=== PATIENT | female | born 1990 | race Hispanic/Latino ===

== ENCOUNTER 2017-03-31 21:51 | Emergency (ER) | payer MEDICAID ==
[2017-03-31 22:45] LABS: BASOPHILS % (AUTO) 0.8 % (0.0-5.0); EOSINOPHILS % (AUTO) 1.3 % (0.0-8.0); HEMATOCRIT 37.4 % (36-48); LYMPHOCYTES % (AUTO) 26.5 % (21.0-51.0); MEAN CORPUSCULAR HEMOGLOBIN 30.8 pg (27.0-33.0); MEAN CORPUSCULAR HGB CONC 34.1 g/dL (32.0-36.0); MEAN CORPUSCULAR VOLUME 90.3 fL (79-99); MONOCYTES % (AUTO) 6.3 % (3.0-13.0); NEUTROPHILS % (AUTO) 65.1 % (40.0-77.0); PLATELET COUNT (AUTO) 261 K/uL (130-400); RED BLOOD CELL COUNT(AUTO) 4.15 MIL/uL (4.00-5.50); WHITE BLOOD COUNT (AUTO) 6.2 K/uL (4.8-10.8)
[2017-03-31 22:54] LABS: CREATININE 0.6 mg/dL (0.5-1.5); POTASSIUM 3.8 mmol/L (3.5-5.1)
[2017-03-31 23:12] LABS: INR 1.72 (0.85-1.15); PARTIAL THROMBOPLASTIN TIME 32.7 SEC (26.3-35.5); PROTHROMBIN TIME 17.9 SEC (9.6-11.6)
[2017-03-31] MEDS ORDERED: ACETAMINOPHEN EXTRA STRENGTH 500 MG TABLET ONE (23:52)
== END 2017-04-01 00:07 | disposition home or self-care (01) ==
LOC: EDH 21:51
DX: R07.89 Other chest pain (principal); Z88.6 Allergy status to analgesic agent; Z88.8 Allergy status to other drugs, medicaments and biological substances; Z98.890 Other specified postprocedural states; Z79.899 Other long term (current) drug therapy
CPT/HCPCS: 36415; 71045; 80048; 84484; 84703; 85025; 85610; 85730; 93005

== ENCOUNTER 2017-05-23 01:44 | Emergency (ER) | payer MEDICAID ==
[2017-05-23 03:05] LABS: INR 1.62 (0.85-1.15); PARTIAL THROMBOPLASTIN TIME 33.1 SEC (26.3-35.5); PROTHROMBIN TIME 16.8 SEC (9.6-11.6)
[2017-05-23 03:09] LABS: BILIRUBIN,URINE Negative (NEGATIVE); COLOR,URINE Yellow (YELLOW); GLUCOSE, URINE (UA) Negative (NEGATIVE); KETONES,URINE Negative (NEGATIVE); LEUKOCYTE ESTERASE ,URINE Small (NEGATIVE); NITRATE,URINE Negative (NEGATIVE); OCCULT BLOOD,URINE Negative (NEGATIVE); PROTEIN,URINE Negative (NEGATIVE)
[2017-05-23 03:09] LABS: ALBUMIN 3.7 g/dL (3.5-5.0); BILIRUBIN,TOTAL 0.4 mg/dL (0.2-1.0); CREATININE 0.7 mg/dL (0.5-1.5); POTASSIUM 3.6 mmol/L (3.5-5.1)
[2017-05-23 03:12] LABS: APPEARANCE,URINE SLIGHTLY CLOUDY (CLEAR)
[2017-05-23 03:13] LABS: BASOPHILS % (AUTO) 0.9 % (0.0-5.0); EOSINOPHILS % (AUTO) 1.3 % (0.0-8.0); HEMATOCRIT 39.1 % (36-48); LYMPHOCYTES % (AUTO) 32.6 % (21.0-51.0); MEAN CORPUSCULAR HEMOGLOBIN 31.3 pg (27.0-33.0); MEAN CORPUSCULAR VOLUME 89.6 fL (79-99); MONOCYTES % (AUTO) 7.7 % (3.0-13.0); NEUTROPHILS % (AUTO) 57.5 % (40.0-77.0); PLATELET COUNT (AUTO) 250 K/uL (130-400); RED BLOOD CELL COUNT(AUTO) 4.36 MIL/uL (4.00-5.50); RED CELL DISTRIBUTION WIDTH 13.1 % (11.0-15.5); WHITE BLOOD COUNT (AUTO) 7.7 K/uL (4.8-10.8)
[2017-05-23 03:38] LABS: HCG,QUAL RESULT NEGATIVE (NEGATIVE)
[2017-05-23 05:13] LABS: MUCUS,URINE Few LPF (None Seen); RBC,URINE None Seen /HPF (0-1); SQUAMOUS EPITHELIAL CELL,UR 30-50 /LPF (0-2)
[2017-05-23 05:14] LABS: BACTERIA,URINE Few /HPF (None Seen); WBC,URINE 0-1 /HPF (0-1)
== END 2017-05-23 04:43 | disposition home or self-care (01) ==
LOC: EDH 01:44
DX: K02.9 Dental caries, unspecified (principal); H92.02 Otalgia, left ear; R79.1 Abnormal coagulation profile; Z88.6 Allergy status to analgesic agent; Z79.899 Other long term (current) drug therapy; Z98.890 Other specified postprocedural states
CPT/HCPCS: 36415; 80053; 81001; 81025; 85025; 85610; 85730

== ENCOUNTER 2018-03-01 15:32 | Emergency (ER) | payer MEDICAID, OTHER | END 2018-03-01 15:55 | disposition home or self-care (01) | LOC: EDH 15:32 | DX: K08.89 Other specified disorders of teeth and supporting structures (principal) | CPT/HCPCS: 99281 ==

== ENCOUNTER 2018-09-17 21:33 | Emergency (ER) | payer OTHER ==
[2018-09-17] MEDS ORDERED: LIDOCAINE HCL-MPF 1% 2ML VIAL ONE ×2 (22:44→22:46)
[2018-09-17] MEDS ORDERED: CEFTRIAXONE SODIUM 1 GM ONE (22:44)
== END 2018-09-17 23:28 | disposition home or self-care (01) ==
LOC: EDH 21:33
DX: L02.416 Cutaneous abscess of left lower limb (principal); Z86.718 Personal history of other venous thrombosis and embolism; Z88.5 Allergy status to narcotic agent; Z88.8 Allergy status to other drugs, medicaments and biological substances; Z98.890 Other specified postprocedural states
CPT/HCPCS: 96372; 99283; J0696; J3490 ×2

== ENCOUNTER 2018-12-26 06:13 | Emergency (ER) | payer OTHER | END 2018-12-26 06:46 | disposition home or self-care (01) | LOC: EDH 06:13 | DX: R51 Headache (principal); Z98.890 Other specified postprocedural states | CPT/HCPCS: 99281 ==

== ENCOUNTER 2019-09-11 16:02 | Emergency (ER) | payer MEDICAID | END 2019-09-11 18:05 | disposition home or self-care (01) | LOC: EDH 16:02 | DX: R06.00 Dyspnea, unspecified (principal); R07.89 Other chest pain; Z79.01 Long term (current) use of anticoagulants; Z88.8 Allergy status to other drugs, medicaments and biological substances; Z88.6 Allergy status to analgesic agent ==

== ENCOUNTER 2019-11-15 21:44 | Emergency (ER) | payer MEDICAID ==
[~2019-11-15 21:44] MED LIST: APIX5TAB PO; CALC500T13 PO; CYAN-35 PO; FOLI0.8C PO
[2019-11-15] MEDS ORDERED: ONDANSETRON HCL 4 MG/2 ML VIAL ONE (22:29)
[2019-11-15] MEDS ORDERED: DiphenhydrAMINE HCL 50 MG/ML VIAL ONE (22:36)
[2019-11-15] MEDS ORDERED: METOCLOPRAMIDE 10 MG/2 ML VIAL ONE (22:36)
[2019-11-15] MEDS ORDERED: PROCHLORPERAZINE EDISYLATE 10 MG/2 ML VIAL ONE (23:25)
[2019-11-15] MEDS ORDERED: SODIUM CHLORIDE 0.9% 1000ML 1,000 ML IV ONE (23:25)
[2019-11-16] MEDS ORDERED: ACETAMINOPHEN EXTRA STRENGTH 500 MG TABLET ONE (00:03)
== END 2019-11-16 00:51 | disposition home or self-care (01) ==
LOC: EDH 21:44
DX: G43.019 Migraine without aura, intractable, without status migrainosus (principal); R11.2 Nausea with vomiting, unspecified; Z79.01 Long term (current) use of anticoagulants; Z86.718 Personal history of other venous thrombosis and embolism
CPT/HCPCS: 70450; 81025; 96361; 96374; 96375; 99284; J0780; J1200; J2405; J2765; J7030

== ENCOUNTER 2020-09-10 10:27 | Emergency (ER) | payer MEDICAID ==
[~2020-09-10] VITALS: Ht 160 cm; Wt 90.7 kg
[2020-09-10 10:29] VITALS: BP 103/45
[2020-09-10] MEDS ORDERED: ASPIRIN 325 MG TABLET PO SCH (10:45)
[2020-09-10 10:58] LABS: BASOPHILS % (AUTO) 0.5 % (0.0-5.0); EOSINOPHILS % (AUTO) 0.4 % (0.0-8.0); HEMATOCRIT 42.8 % (36-48); LYMPHOCYTES % (AUTO) 10.3 % (21.0-51.0); MEAN CORPUSCULAR HEMOGLOBIN 32.3 pg (27.0-33.0); MEAN CORPUSCULAR HGB CONC 32.9 g/dL (32.0-36.0); MEAN CORPUSCULAR VOLUME 98.2 fL (79-99); MONOCYTES % (AUTO) 3.4 % (3.0-13.0); NEUTROPHILS % (AUTO) 85.2 % (40.0-77.0); PLATELET COUNT (AUTO) 260 K/uL (130-400); RED BLOOD CELL COUNT(AUTO) 4.36 MIL/uL (4.00-5.50); RED CELL DISTRIBUTION WIDTH 12.4 % (11.0-15.5); WHITE BLOOD COUNT (AUTO) 5.5 K/uL (4.8-10.8)
[2020-09-10 11:24] LABS: ALANINE AMINOTRANSFERASE 23 U/L (12-78); ASPARTATE AMINOTRANSFERASE 20 U/L (10-37); BILIRUBIN,TOTAL 0.4 mg/dL (0.2-1.0); CARBON DIOXIDE 28 mmol/L (21-32); CHLORIDE 104 mmol/L (101-111); CREATINE KINASE, TOTAL 78 U/L (21-232); CREATININE 0.8 mg/dL (0.5-1.5); GLOMERULAR FILTR. RATE CALC 90 mL/min (>60); GLUCOSE,RANDOM 97 mg/dL (70-105); MYOGLOBIN 22 ng/mL (10-92); POTASSIUM 4.1 mmol/L (3.5-5.1); SODIUM SERUM 136 mmol/L (136-145); TOTAL PROTEIN, SERUM 8.4 g/dL (6.0-8.3); TROPONIN I < 0.04 ng/mL (0.00-0.06); UREA NITROGEN, BLOOD 16 mg/dL (7-18)
[2020-09-10 11:28] LABS: AMPHET/METH SCREEN,URINE NEGATIVE (NEGATIVE); BARBITURATE SCREEN, URINE NEGATIVE (NEGATIVE); BENZODIAZEPINES SCREEN,URINE NEGATIVE (NEGATIVE); CANNABINOID SCREEN,URINE NEGATIVE (NEGATIVE); COCAINE SCREEN,URINE NEGATIVE (NEGATIVE); OPIATE SCREEN,URINE NEGATIVE (NEGATIVE); PHENCYCLIDINE SCREEN,URINE NEGATIVE (NEGATIVE)
[2020-09-10 11:31] LABS: HCG,QUAL RESULT NEGATIVE (NEGATIVE)
[2020-09-10 11:46] VITALS: BP 110/54
[2020-09-10 12:57] LABS: INR 0.98 (0.85-1.15); PROTHROMBIN TIME 10.7 SEC (9.6-11.6)
[2020-09-10] MEDS ORDERED: APIXABAN 5 MG TABLET PO STA (13:57)
[2020-09-10 14:08] VITALS: BP 118/62
[2020-09-10] MEDS ORDERED: APIX5TAB PO (15:25)
== END 2020-09-10 15:27 | disposition home or self-care (01) ==
LOC: EDH 10:27
DX: I82.412 Acute embolism and thrombosis of left femoral vein (principal); R07.89 Other chest pain; Z79.899 Other long term (current) drug therapy; Z98.890 Other specified postprocedural states
CPT/HCPCS: 36415; 71045; 80053; 80305; 81025; 82550; 83874; 84484; 85025; 85378; 85610; 93005; 93971

== ENCOUNTER 2021-03-22 20:48 | Emergency (ER) | payer MEDICAID ==
[~2021-03-22] VITALS: Ht 157.5 cm; Wt 93.0 kg
[2021-03-22 22:24] VITALS: BP 110/77
[2021-03-22] MEDS ORDERED: CYCLOBENZAPRINE HCL 10 MG TABLET PO ONE (22:30)
[2021-03-22] MEDS ORDERED: ACETAMINOPHEN 500 MG TABLET PO ONE (22:30)
[2021-03-22] MEDS ORDERED: PROMETHAZINE HCL 25 MG/ML 1ML AMPULE IM ONE (22:30)
[2021-03-22 22:41] LABS: BASOPHILS % (AUTO) 0.6 % (0.0-5.0); EOSINOPHILS % (AUTO) 1.2 % (0.0-8.0); HEMATOCRIT 39.3 % (36-48); LYMPHOCYTES % (AUTO) 24.2 % (21.0-51.0); MEAN CORPUSCULAR HEMOGLOBIN 31.6 pg (27.0-33.0); MEAN CORPUSCULAR HGB CONC 33.3 g/dL (32.0-36.0); MEAN CORPUSCULAR VOLUME 94.9 fL (79-99); MONOCYTES % (AUTO) 7.6 % (3.0-13.0); NEUTROPHILS % (AUTO) 66.2 % (40.0-77.0); PLATELET COUNT (AUTO) 272 K/uL (130-400); RED BLOOD CELL COUNT(AUTO) 4.14 MIL/uL (4.00-5.50); RED CELL DISTRIBUTION WIDTH 12.6 % (11.0-15.5); WHITE BLOOD COUNT (AUTO) 6.5 K/uL (4.8-10.8)
[2021-03-22] MEDS ORDERED: 0.9%NACL 50ML 50 ML IV ONE (22:53)
[2021-03-22] MEDS ORDERED: RIZA10TA23 PO (23:01)
[2021-03-22] MEDS ORDERED: PHEN12S PR (23:01)
[2021-03-22 23:16] LABS: CREATININE 0.6 mg/dL (0.5-1.5); POTASSIUM 3.5 mmol/L (3.5-5.1)
[2021-03-22 23:21] LABS: ALBUMIN 3.7 g/dL (3.5-5.0); BILIRUBIN,TOTAL 0.4 mg/dL (0.2-1.0); TOTAL PROTEIN, SERUM 7.8 g/dL (6.0-8.3)
== END 2021-03-22 23:27 | disposition home or self-care (01) ==
LOC: EDH 20:48
DX: G43.109 Migraine with aura, not intractable, without status migrainosus (principal); Z79.899 Other long term (current) drug therapy
CPT/HCPCS: 36415; 80053; 85025; 96372; 99283; J2550

== ENCOUNTER 2021-09-08 02:50 | Emergency (ER) | payer BC, MEDICAID ==
[~2021-09-08] VITALS: Ht 160 cm; Wt 104.8 kg
[~2021-09-08 02:50] MED LIST changes: -APIX5TAB PO; -CALC500T13 PO; -CYAN-35 PO; +CYAN100099 PO; +DABI150C PO
[2021-09-08 03:20] LABS: BASOPHILS % (AUTO) 0.7 % (0.0-5.0); EOSINOPHILS % (AUTO) 1.9 % (0.0-8.0); HEMATOCRIT 40.4 % (36-48); LYMPHOCYTES % (AUTO) 24.3 % (21.0-51.0); MEAN CORPUSCULAR HEMOGLOBIN 31.2 pg (27.0-33.0); MEAN CORPUSCULAR HGB CONC 33.9 g/dL (32.0-36.0); MONOCYTES % (AUTO) 9.7 % (3.0-13.0); PLATELET COUNT (AUTO) 253 K/uL (130-400); RED BLOOD CELL COUNT(AUTO) 4.39 MIL/uL (4.00-5.50); RED CELL DISTRIBUTION WIDTH 12.6 % (11.0-15.5); WHITE BLOOD COUNT (AUTO) 8.4 K/uL (4.8-10.8)
[2021-09-08 03:22] LABS: APPEARANCE,URINE CLEAR (CLEAR); BILIRUBIN,URINE NEGATIVE (NEGATIVE); COLOR,URINE YELLOW (YELLOW); GLUCOSE, URINE (UA) NEGATIVE (NEGATIVE); KETONES,URINE NEGATIVE (NEGATIVE); LEUKOCYTE ESTERASE ,URINE SMALL (NEGATIVE); NITRATE,URINE NEGATIVE (NEGATIVE); OCCULT BLOOD,URINE MODERATE (NEGATIVE); PROTEIN,URINE TRACE mg/dL (NEGATIVE); UROBILINOGEN,URINE 0.2 mg/dL (0.2-1.0)
[2021-09-08 03:30] LABS: CREATININE 0.7 mg/dL (0.5-1.5); POTASSIUM 3.8 mmol/L (3.5-5.1)
[2021-09-08 03:34] LABS: ALBUMIN 3.4 g/dL (3.5-5.0); TOTAL PROTEIN, SERUM 7.7 g/dL (6.0-8.3)
[2021-09-08 03:46] LABS: BACTERIA,URINE Few /HPF (None Seen)
[2021-09-08 03:53] LABS: HCG,QUAL RESULT NEGATIVE (NEGATIVE)
[2021-09-08] MEDS ORDERED: KETOROLAC 15MG/ML VIAL (15MG/ML) IV ONE (04:00)
[2021-09-08 05:35] VITALS: BP 113/68
[2021-09-08] MEDS ORDERED: TRAM100T40 PO (06:00)
[2021-09-08] MEDS ORDERED: MEDR10TA PO (06:00)
[2021-09-08] MEDS ORDERED: MEDROXYPROGESTERONE ACET 5 MG TAB PO SCH (06:00)
== END 2021-09-08 06:11 | disposition home or self-care (01) ==
LOC: EDH 02:50
DX: N93.9 Abnormal uterine and vaginal bleeding, unspecified (principal); G43.909 Migraine, unspecified, not intractable, without status migrainosus; Z86.718 Personal history of other venous thrombosis and embolism; Z88.5 Allergy status to narcotic agent; Z88.8 Allergy status to other drugs, medicaments and biological substances; Z79.899 Other long term (current) drug therapy
CPT/HCPCS: 99284; 96374; 76856; 80053; 83690; 85025; 87088; 81001; 81025; 36415; J1885

== ENCOUNTER 2021-09-27 09:18 | Emergency (ER) | payer BC, MEDICAID ==
[~2021-09-27] VITALS: Ht 165.1 cm; Wt 99.8 kg
[~2021-09-27 09:18] MED LIST changes: +MEDR10TA PO; +TRAM100T40 PO
[2021-09-27 09:52] LABS: EOSINOPHILS % (AUTO) 1.3 % (0.0-8.0); HEMATOCRIT 32.5 % (36-48); LYMPHOCYTES % (AUTO) 29.2 % (21.0-51.0); MEAN CORPUSCULAR HEMOGLOBIN 30.9 pg (27.0-33.0); MEAN CORPUSCULAR HGB CONC 33.2 g/dL (32.0-36.0); MEAN CORPUSCULAR VOLUME 92.9 fL (79-99); MONOCYTES % (AUTO) 7.7 % (3.0-13.0); NEUTROPHILS % (AUTO) 60.4 % (40.0-77.0); PLATELET COUNT (AUTO) 254 K/uL (130-400); RED CELL DISTRIBUTION WIDTH 13.2 % (11.0-15.5); WHITE BLOOD COUNT (AUTO) 5.2 K/uL (4.8-10.8)
[2021-09-27 10:40] LABS: CARBON DIOXIDE 25 mmol/L (21-32); CHLORIDE 107 mmol/L (101-111); CREATININE 0.6 mg/dL (0.5-1.5); GLOMERULAR FILTR. RATE CALC 124 mL/min (>60); GLUCOSE,RANDOM 93 mg/dL (70-105); POTASSIUM 4.1 mmol/L (3.5-5.1); SODIUM SERUM 139 mmol/L (136-145); UREA NITROGEN, BLOOD 16 mg/dL (7-18)
[2021-09-27 10:44] LABS: ALANINE AMINOTRANSFERASE 19 U/L (12-78); ALBUMIN 3.3 g/dL (3.5-5.0); ASPARTATE AMINOTRANSFERASE 19 U/L (10-37)
[2021-09-27] MEDS ORDERED: IOHEXOL 350 MG/ML 100ML INFUS..BTL IV ONE (11:15)
[2021-09-27 12:47] VITALS: BP 109/61
== END 2021-09-27 12:49 | disposition home or self-care (01) ==
LOC: EDH 09:18
DX: I82.402 Acute embolism and thrombosis of unspecified deep veins of left lower extremity (principal); E66.9 Obesity, unspecified; Z79.01 Long term (current) use of anticoagulants; Z88.5 Allergy status to narcotic agent; Z68.36 Body mass index [BMI] 36.0-36.9, adult
CPT/HCPCS: 99284; 71270; 80053; 85025; 85378; 81025; 36415; Q9967

== ENCOUNTER 2021-10-23 22:01 | Emergency (ER) | payer BC, MEDICAID ==
[~2021-10-23] VITALS: Ht 160 cm; Wt 102.5 kg
[2021-10-23 22:03] VITALS: BP 119/80
[2021-10-23] MEDS ORDERED: KETOROLAC 30MG VIAL (30MG/ML) ONE (22:51)
[2021-10-23] MEDS ORDERED: CYCLOBENZAPRINE HCL 10 MG TABLET ONE (22:52)
[2021-10-23 23:00] LABS: BASOPHILS % (AUTO) 0.4 % (0.0-5.0); EOSINOPHILS % (AUTO) 0.5 % (0.0-8.0); HEMATOCRIT 39.3 % (36-48); LYMPHOCYTES % (AUTO) 15.6 % (21.0-51.0); MEAN CORPUSCULAR HEMOGLOBIN 31.9 pg (27.0-33.0); MEAN CORPUSCULAR HGB CONC 33.6 g/dL (32.0-36.0); MEAN CORPUSCULAR VOLUME 94.9 fL (79-99); MONOCYTES % (AUTO) 5.1 % (3.0-13.0); NEUTROPHILS % (AUTO) 78.3 % (40.0-77.0); PLATELET COUNT (AUTO) 255 K/uL (130-400); RED BLOOD CELL COUNT(AUTO) 4.14 MIL/uL (4.00-5.50); WHITE BLOOD COUNT (AUTO) 7.9 K/uL (4.8-10.8)
[2021-10-23] MEDS ORDERED: 0.9% NACL 500ML IV.SOLN 500 ML IV SCH (23:00)
[2021-10-23] MEDS ORDERED: CYCLOBENZAPRINE HCL 10 MG TABLET PO ONE (23:00)
[2021-10-23] MEDS ORDERED: KETOROLAC 30MG VIAL (30MG/ML) IVP ONE (23:00)
[2021-10-23] MEDS ORDERED: PROMETHAZINE HCL 25 MG/ML 1ML AMPULE IVPB SCH (23:00)
[2021-10-23 23:08] LABS: CREATININE 0.6 mg/dL (0.5-1.5); POTASSIUM 3.7 mmol/L (3.5-5.1)
[2021-10-23 23:13] LABS: ALBUMIN 3.6 g/dL (3.5-5.0); TOTAL PROTEIN, SERUM 7.5 g/dL (6.0-8.3)
[2021-10-23] MEDS ORDERED: NAPR-1180 PO (23:14)
[2021-10-23] MEDS ORDERED: CYCL10TA16 PO (23:14)
[2021-10-23] MEDS ORDERED: RIZA10TA23 PO (23:14)
== END 2021-10-24 | disposition home or self-care (01) ==
LOC: EDH 22:01
DX: G43.109 Migraine with aura, not intractable, without status migrainosus (principal); Z79.01 Long term (current) use of anticoagulants; Z79.1 Long term (current) use of non-steroidal anti-inflammatories (NSAID); Z86.718 Personal history of other venous thrombosis and embolism; Z88.5 Allergy status to narcotic agent; E66.9 Obesity, unspecified; Z68.41 Body mass index [BMI] 40.0-44.9, adult
CPT/HCPCS: 99284; 96365; 96375; 80053; 85025; 36415; J7040; J2550; J1885

== ENCOUNTER 2021-11-03 12:43 | Emergency (ER) | payer BC, MEDICAID ==
[~2021-11-03] VITALS: Ht 160 cm; Wt 104.3 kg
[~2021-11-03 12:43] MED LIST changes: +CYCL10TA16 PO; +NAPR-1180 PO; +RIZA10TA23 PO
[2021-11-03 12:47] VITALS: BP 121/70
[2021-11-03] MEDS ORDERED: OSEL75 PO (14:24)
[2021-11-03] MEDS ORDERED: OSELTAMIVIR PHOSPHATE 75 MG CAP PO SCH (14:30)
== END 2021-11-03 14:38 | disposition home or self-care (01) ==
LOC: EDH 12:43
DX: J10.1 Influenza due to other identified influenza virus with other respiratory manifestations (principal); Z20.822 Contact with and (suspected) exposure to COVID-19; G43.909 Migraine, unspecified, not intractable, without status migrainosus; E66.9 Obesity, unspecified; Z68.41 Body mass index [BMI] 40.0-44.9, adult; Z88.5 Allergy status to narcotic agent; Z79.899 Other long term (current) drug therapy; Z86.718 Personal history of other venous thrombosis and embolism; Z98.890 Other specified postprocedural states
CPT/HCPCS: 99283; 87635; 87804 ×2; C9803

== ENCOUNTER 2021-12-02 14:16 | Emergency (ER) | payer BC, MEDICAID ==
[~2021-12-02] VITALS: Ht 160 cm; Wt 104.3 kg
[~2021-12-02 14:16] MED LIST changes: +OSEL75 PO
[2021-12-02 14:47] LABS: BASOPHILS % (AUTO) 0.6 % (0.0-5.0); LYMPHOCYTES % (AUTO) 22.1 % (21.0-51.0); MEAN CORPUSCULAR HEMOGLOBIN 31.6 pg (27.0-33.0); MEAN CORPUSCULAR HGB CONC 33.9 g/dL (32.0-36.0); MEAN CORPUSCULAR VOLUME 93.1 fL (79-99); PLATELET COUNT (AUTO) 225 K/uL (130-400); RED BLOOD CELL COUNT(AUTO) 4.08 MIL/uL (4.00-5.50); RED CELL DISTRIBUTION WIDTH 12.1 % (11.0-15.5); WHITE BLOOD COUNT (AUTO) 6.9 K/uL (4.8-10.8)
[2021-12-02 14:49] VITALS: BP 127/75
[2021-12-02 14:57] LABS: CREATININE 0.6 mg/dL (0.5-1.5); POTASSIUM 3.5 mmol/L (3.5-5.1)
[2021-12-02 15:04] LABS: ALBUMIN 3.6 g/dL (3.5-5.0); TOTAL PROTEIN, SERUM 7.5 g/dL (6.0-8.3)
[2021-12-02 15:25] LABS: APPEARANCE,URINE CLEAR (CLEAR); BILIRUBIN,URINE NEGATIVE (NEGATIVE); COLOR,URINE YELLOW (YELLOW); GLUCOSE, URINE (UA) NEGATIVE (NEGATIVE); KETONES,URINE 5 mg/dL (NEGATIVE); LEUKOCYTE ESTERASE ,URINE NEGATIVE Leu/uL (NEGATIVE); NITRATE,URINE NEGATIVE (NEGATIVE); OCCULT BLOOD,URINE NEGATIVE (NEGATIVE); PH,URINE 5.5 (5.0-8.0); PROTEIN,URINE NEGATIVE (NEGATIVE); UROBILINOGEN,URINE 0.2 mg/dL (0.2-1.0)
[2021-12-02 15:27] LABS: HCG,QUALITATIVE URINE NEGATIVE (NEGATIVE)
[2021-12-02] MEDS ORDERED: KETOROLAC 15MG/ML VIAL (15MG/ML) IV ONE (15:30)
[2021-12-02] MEDS ORDERED: 0.9%NACL 1000ML 1,000 ML IV ONE (15:30)
== END 2021-12-02 16:55 | disposition home or self-care (01) ==
LOC: EDH 14:16
DX: M25.572 Pain in left ankle and joints of left foot (principal); R51.9 Headache, unspecified; Z88.5 Allergy status to narcotic agent; Z88.8 Allergy status to other drugs, medicaments and biological substances; Z79.899 Other long term (current) drug therapy
CPT/HCPCS: 99284; 96374; 93971; 96361; 80053; 85025; 81003; 81025; 36415; J7030; J1885

== ENCOUNTER 2022-04-13 20:55 | Emergency (ER) | payer BC, MEDICAID ==
[~2022-04-13] VITALS: Ht 160 cm; Wt 90.7 kg
[2022-04-13 21:16] LABS: BASOPHILS % (AUTO) 0.8 % (0.0-5.0); EOSINOPHILS % (AUTO) 1.5 % (0.0-8.0); HEMATOCRIT 39.6 % (36-48); MEAN CORPUSCULAR HEMOGLOBIN 31.9 pg (27.0-33.0); MEAN CORPUSCULAR HGB CONC 34.3 g/dL (32.0-36.0); NEUTROPHILS % (AUTO) 56.4 % (40.0-77.0); PLATELET COUNT (AUTO) 289 K/uL (130-400); RED BLOOD CELL COUNT(AUTO) 4.26 MIL/uL (4.00-5.50); RED CELL DISTRIBUTION WIDTH 12.2 % (11.0-15.5)
[2022-04-13 21:26] LABS: CREATININE 0.7 mg/dL (0.5-1.5); POTASSIUM 3.2 mmol/L (3.5-5.1)
[2022-04-13 21:33] LABS: ALBUMIN 3.9 g/dL (3.5-5.0); TOTAL PROTEIN, SERUM 8.1 g/dL (6.0-8.3)
[2022-04-13] MEDS ORDERED: KCL 20 MEQ ERTAB PO ONE ×2 (23:12→23:30)
[2022-04-14 02:52] VITALS: BP 132/84
== END 2022-04-14 02:50 | disposition home or self-care (01) ==
LOC: EDH 20:55
DX: R12 Heartburn (principal); R07.89 Other chest pain; E66.9 Obesity, unspecified; G43.909 Migraine, unspecified, not intractable, without status migrainosus; Z88.5 Allergy status to narcotic agent; Z88.8 Allergy status to other drugs, medicaments and biological substances; Z86.718 Personal history of other venous thrombosis and embolism
CPT/HCPCS: 36415; 71045; 80053; 83880; 84484; 85025; 93005

== ENCOUNTER 2022-06-29 08:15 | Inpatient (IN) | payer OTHER, MEDICAID ==
[~2022-06-29] VITALS: Ht 154.9 cm; Wt 107.3 kg
[2022-06-29 09:33] LABS: EOSINOPHILS % (AUTO) 2.1 % (0.0-8.0); HEMATOCRIT 39.8 % (36-48); LYMPHOCYTES % (AUTO) 27.6 % (21.0-51.0); MEAN CORPUSCULAR HEMOGLOBIN 32.1 pg (27.0-33.0); MEAN CORPUSCULAR HGB CONC 33.7 g/dL (32.0-36.0); MEAN CORPUSCULAR VOLUME 95.2 fL (79-99); MONOCYTES % (AUTO) 7.8 % (3.0-13.0); NEUTROPHILS % (AUTO) 61.2 % (40.0-77.0); PLATELET COUNT (AUTO) 229 K/uL (130-400); RED BLOOD CELL COUNT(AUTO) 4.18 MIL/uL (4.00-5.50); RED CELL DISTRIBUTION WIDTH 12.3 % (11.0-15.5); WHITE BLOOD COUNT (AUTO) 7.2 K/uL (4.8-10.8)
[2022-06-29 09:54] LABS: CREATININE 0.7 mg/dL (0.5-1.5); POTASSIUM 3.7 mmol/L (3.5-5.1)
[2022-06-29 09:58] LABS: INR 0.94 (0.85-1.15); PROTHROMBIN TIME 10.3 SEC (9.6-11.6)
[2022-06-29 09:59] LABS: ALBUMIN 3.6 g/dL (3.5-5.0); TOTAL PROTEIN, SERUM 7.6 g/dL (6.0-8.3)
[2022-06-29 10:00] LABS: PARTIAL THROMBOPLASTIN TIME 33.8 SEC (26.3-35.5)
[2022-06-29] MEDS ORDERED: HEPARIN 5,000 UNIT VIAL ONE (10:19)
[2022-06-29] MEDS ORDERED: HEPARIN 25,000 UNITS/250ML D5W 250 ML IV ONE (10:20)
[2022-06-29] MEDS ORDERED: HEPARIN 25,000 UNITS/250ML D5W 250 ML IV SCH (11:00)
[2022-06-29] MEDS ORDERED: HEPARIN 5,000 UNIT VIAL SQ PRN ×2 (11:00→13:30)
[2022-06-29] MEDS ORDERED: MAG/ALUM/SIMETH 30 ML UDCUP PO PRN (13:00)
[2022-06-29] MEDS ORDERED: ACETAMINOPHEN 325 MG TAB PO PRN (13:00)
[2022-06-29] MEDS ORDERED: LACTULOSE 20 GM/30 ML UDCUP PO PRN (13:00)
[2022-06-29] MEDS ORDERED: ZOLPIDEM TARTRATE 5 MG TAB PO PRN (13:00)
[2022-06-29] MEDS ORDERED: DIPHENHYDRAMINE HCL 25 MG CAPSULE PO PRN (13:00)
[2022-06-29] MEDS ORDERED: ONDANSETRON 4MG INJ IV PRN (13:00)
[2022-06-29] MEDS: HEPARIN 25,000 UNITS/250ML D5W 250 ML IV SCH ×2 (13:30→19:30)
[2022-06-29 16:53] LABS: BASOPHILS % (AUTO) 0.7 % (0.0-5.0); EOSINOPHILS % (AUTO) 2.1 % (0.0-8.0); HEMATOCRIT 39.1 % (36-48); LYMPHOCYTES % (AUTO) 29.1 % (21.0-51.0); MEAN CORPUSCULAR HEMOGLOBIN 31.6 pg (27.0-33.0); MEAN CORPUSCULAR HGB CONC 33.5 g/dL (32.0-36.0); MEAN CORPUSCULAR VOLUME 94.4 fL (79-99); MONOCYTES % (AUTO) 6.3 % (3.0-13.0); NEUTROPHILS % (AUTO) 61.4 % (40.0-77.0); PLATELET COUNT (AUTO) 219 K/uL (130-400); RED BLOOD CELL COUNT(AUTO) 4.14 MIL/uL (4.00-5.50); RED CELL DISTRIBUTION WIDTH 12.5 % (11.0-15.5); WHITE BLOOD COUNT (AUTO) 8.1 K/uL (4.8-10.8)
[2022-06-29] MEDS: FAMOTIDINE 20MG TAB PO SCH (21:17)
[2022-06-29] MEDS: ACETAMINOPHEN 325 MG TAB PO PRN (21:23)
[2022-06-29 23:20] LABS: INR 0.98 (0.85-1.15); PROTHROMBIN TIME 10.7 SEC (9.6-11.6)
[2022-06-29 23:38] LABS: PARTIAL THROMBOPLASTIN TIME 112.7 SEC (26.3-35.5)
[2022-06-30] MEDS ORDERED: DABI150C PO (00:31)
[2022-06-30] MEDS: HEPARIN 25,000 UNITS/250ML D5W 250 ML IV SCH ×4 (00:58→21:01)
[2022-06-30 01:00] VITALS: BP 123/75
[2022-06-30 04:00] VITALS: BP 118/68
[2022-06-30 07:09] LABS: BASOPHILS % (AUTO) 0.8 % (0.0-5.0); EOSINOPHILS % (AUTO) 2.6 % (0.0-8.0); LYMPHOCYTES % (AUTO) 28.5 % (21.0-51.0); MEAN CORPUSCULAR HEMOGLOBIN 31.7 pg (27.0-33.0); MEAN CORPUSCULAR HGB CONC 33.5 g/dL (32.0-36.0); MEAN CORPUSCULAR VOLUME 94.6 fL (79-99); MONOCYTES % (AUTO) 8.1 % (3.0-13.0); NEUTROPHILS % (AUTO) 59.7 % (40.0-77.0); PLATELET COUNT (AUTO) 218 K/uL (130-400); RED BLOOD CELL COUNT(AUTO) 3.91 MIL/uL (4.00-5.50); RED CELL DISTRIBUTION WIDTH 12.6 % (11.0-15.5); WHITE BLOOD COUNT (AUTO) 6.6 K/uL (4.8-10.8)
[2022-06-30 07:22] LABS: INR 0.95 (0.85-1.15); PROTHROMBIN TIME 10.4 SEC (9.6-11.6)
[2022-06-30 07:23] LABS: PARTIAL THROMBOPLASTIN TIME 69.9 SEC (26.3-35.5)
[2022-06-30 07:26] LABS: ALBUMIN 3.2 g/dL (3.5-5.0); CREATININE 0.7 mg/dL (0.5-1.5); POTASSIUM 3.7 mmol/L (3.5-5.1); TOTAL PROTEIN, SERUM 6.8 g/dL (6.0-8.3)
[2022-06-30 08:34] VITALS: BP 116/64
[2022-06-30] MEDS: FAMOTIDINE 20MG TAB PO SCH ×2 (08:40→21:04)
[2022-06-30 11:15] LABS: INR 0.94 (0.85-1.15); PROTHROMBIN TIME 10.3 SEC (9.6-11.6)
[2022-06-30 11:17] LABS: PARTIAL THROMBOPLASTIN TIME 85.7 SEC (26.3-35.5)
[2022-06-30] MEDS: ACETAMINOPHEN 325 MG TAB PO PRN ×3 (12:00→23:18)
[2022-06-30 12:44] VITALS: BP 120/70
[2022-06-30 17:33] LABS: INR 0.94 (0.85-1.15); PROTHROMBIN TIME 10.3 SEC (9.6-11.6)
[2022-06-30 17:34] LABS: PARTIAL THROMBOPLASTIN TIME 78.9 SEC (26.3-35.5)
[2022-06-30 17:43] VITALS: BP 112/68
[2022-06-30 20:00] VITALS: BP 122/80
[2022-06-30 23:28] LABS: INR 0.93 (0.85-1.15); PROTHROMBIN TIME 10.2 SEC (9.6-11.6)
[2022-06-30 23:29] LABS: PARTIAL THROMBOPLASTIN TIME 46.6 SEC (26.3-35.5)
[2022-07-01] VITALS: BP 121/70
[2022-07-01] MEDS ORDERED: HYDROCODONE/ACETAMINOPHEN 5/325 MG TAB PO ONE (01:00)
[2022-07-01] MEDS: HEPARIN 25,000 UNITS/250ML D5W 250 ML IV SCH ×2 (01:21→07:30)
[2022-07-01 04:00] VITALS: BP 106/61
[2022-07-01 06:01] LABS: BASOPHILS % (AUTO) 0.7 % (0.0-5.0); EOSINOPHILS % (AUTO) 0.8 % (0.0-8.0); HEMATOCRIT 36.7 % (36-48); LYMPHOCYTES % (AUTO) 24.8 % (21.0-51.0); MEAN CORPUSCULAR HEMOGLOBIN 31.8 pg (27.0-33.0); MEAN CORPUSCULAR HGB CONC 33.5 g/dL (32.0-36.0); MEAN CORPUSCULAR VOLUME 94.8 fL (79-99); MONOCYTES % (AUTO) 7.9 % (3.0-13.0); NEUTROPHILS % (AUTO) 65.5 % (40.0-77.0); PLATELET COUNT (AUTO) 225 K/uL (130-400); RED BLOOD CELL COUNT(AUTO) 3.87 MIL/uL (4.00-5.50); RED CELL DISTRIBUTION WIDTH 12.5 % (11.0-15.5); WHITE BLOOD COUNT (AUTO) 7.3 K/uL (4.8-10.8)
[2022-07-01 06:22] LABS: ALBUMIN 3.2 g/dL (3.5-5.0); CREATININE 0.7 mg/dL (0.5-1.5); POTASSIUM 3.9 mmol/L (3.5-5.1)
[2022-07-01] MEDS ORDERED: DABI150C PO (07:45)
[2022-07-01 08:00] VITALS: BP 113/70
[2022-07-01] MEDS: FAMOTIDINE 20MG TAB PO SCH (08:09)
[2022-07-01] MEDS ORDERED: DABIGATRAN 150MG CAPSULE PO SCH (09:00)
== END 2022-07-01 11:20 | disposition home or self-care (01) | DRG 300 ==
LOC: EDH 08:15 → EDHIP 12:38 → 3CH 06-30 01:14
PROVIDERS: ADMIT Hospitalist; ATTEND Hospitalist
DX: I82.412 Acute embolism and thrombosis of left femoral vein (principal); Z68.41 Body mass index [BMI] 40.0-44.9, adult; E66.01 Morbid (severe) obesity due to excess calories; D64.9 Anemia, unspecified; Z79.01 Long term (current) use of anticoagulants
CPT/HCPCS: 36415; 80053; 81025; 85025; 85610; 85730; 93971; G0378; J1644

== ENCOUNTER 2023-02-06 20:25 | Emergency (ER) | payer OTHER ==
[~2023-02-06] VITALS: Ht 165.1 cm; Wt 113.4 kg
[~2023-02-06 20:25] MED LIST changes: -CYCL10TA16 PO; -DABI150C PO; -NAPR-1180 PO; -OSEL75 PO; +RIVA15TA PO; -RIZA10TA23 PO; -TRAM100T40 PO
[2023-02-06 20:26] VITALS: BP 138/92; PULSE 87; RESP 18
[2023-02-06 21:41] LABS: BASOPHILS # (AUTO) 0.07 K/uL (0.00-0.20); BASOPHILS % (AUTO) 1.1 % (0.0-5.0); EOSINOPHILS # (AUTO) 0.08 K/uL (0.00-0.70); EOSINOPHILS % (AUTO) 1.3 % (0.0-8.0); HEMATOCRIT 36.1 % (36-48); IMMATURE GRANULOCYTE ABSOLUTE 0.02 K/uL (0-1); LYMPHOCYTES # (AUTO) 1.9 K/uL (1.0-4.8); LYMPHOCYTES % (AUTO) 29.5 % (21.0-51.0); MEAN CORPUSCULAR HEMOGLOBIN 31.6 pg (27.0-33.0); MEAN CORPUSCULAR HGB CONC 33.2 g/dL (32.0-36.0); MONOCYTES # (AUTO) 0.5 K/uL (0.1-1.0); MONOCYTES % (AUTO) 7.8 % (3.0-13.0); NEUTROPHILS # (AUTO) 3.8 K/uL (1.8-7.7); PLATELET COUNT (AUTO) 273 K/uL (130-400); RED CELL DISTRIBUTION WIDTH 12.5 % (11.0-15.5); WHITE BLOOD COUNT (AUTO) 6.3 K/uL (4.8-10.8)
[2023-02-06 21:58] LABS: INR < 0.93 (0.85-1.15); PROTHROMBIN TIME 10.8 SEC (9.6-11.6)
[2023-02-06 21:59] LABS: PARTIAL THROMBOPLASTIN TIME 28.2 SEC (26.3-35.5)
[2023-02-06 22:09] LABS: CREATININE 0.8 mg/dL (0.5-1.5); POTASSIUM 4.1 mmol/L (3.5-5.1)
[2023-02-06 22:10] LABS: ALBUMIN 3.5 g/dL (3.5-5.0); BILIRUBIN,TOTAL 0.2 mg/dL (0.2-1.0); TOTAL PROTEIN, SERUM 7.9 g/dL (6.0-8.3)
[2023-02-06 22:43] LABS: APPEARANCE,URINE CLOUDY (CLEAR); BILIRUBIN,URINE NEGATIVE (NEGATIVE); COLOR,URINE RED (YELLOW); GLUCOSE, URINE (UA) 100 mg/dL (NEGATIVE); KETONES,URINE 15 mg/dL (NEGATIVE); LEUKOCYTE ESTERASE ,URINE MODERATE Leu/uL (NEGATIVE); NITRATE,URINE POSITIVE (NEGATIVE); OCCULT BLOOD,URINE LARGE (NEGATIVE); PROTEIN,URINE >=300 mg/dL (NEGATIVE)
[2023-02-06 22:44] LABS: ADD UA MICROSCOPIC YES
[2023-02-06 22:46] LABS: BACTERIA,URINE MOD /HPF (None Seen); RBC,URINE TNTC /HPF (0-1); WBC CLUMP MANY /HPF (0-1); WBC,URINE TNTC /HPF (0-1); YEAST,URINE BUDDING FEW /HPF (None Seen)
[2023-02-06 22:55] LABS: HCG,QUALITATIVE URINE NEGATIVE (NEGATIVE)
== END 2023-02-06 23:30 | disposition left against medical advice (07) ==
LOC: EDH 20:25
DX: N93.9 Abnormal uterine and vaginal bleeding, unspecified (principal); R10.30 Lower abdominal pain, unspecified; R42 Dizziness and giddiness; Z53.21 Procedure and treatment not carried out due to patient leaving prior to being seen by health care provider
CPT/HCPCS: 36415; 80053; 81001; 81025; 85025; 85610; 85730; 87088; 99281